=== PATIENT | male | born 2000 | race Caucasian/White ===

== ENCOUNTER 2021-03-10 23:34 | Emergency (ER) | payer OTHER, SELFPAY ==
[2021-03-10 23:48] VITALS: BP 137/68; PULSE 84; RESP 18; TEMP 36.6; O2SAT 97
--- NOTE | 2021-03-10 23:50 | ED.CHESTPAIN ---
HPI - Chest Pain General Chief Complaint: Shortness of Breath/Dyspnea Stated Complaint: chest pain Time Seen by Provider: 03/10/21 23:44 Source: patient History of Present Illness HPI narrative: Patient presents requesting a Covid swab. Patient reports this evening he was getting ready for bed developed some nausea shortness of breath and chest pain he had an episode of emesis significant other felt he was wheezing but he took a home Covid test and thought maybe it was positive but they were not sure so they came to the ER requesting a Covid test. Patient reports he is feeling improved now. Reports is not vaccinated as Covid and a coworker was sick recently. Related Data Allergies Allergy/AdvReac Type Severity Reaction Status Date / Time No Known Allergies Allergy Verified 03/10/21 23:52 Review of Systems Review of Systems: CONSTITUTIONAL: Denies fever, chills, or sweats. EYES: Denies visual changes, redness, or discharge. ENT: Denies rhinorrhea, congestion, sore throat, or otalgia. CARDIOVASCULAR: Denies current chest pain, palpitations, or edema. RESPIRATORY: Reports mild recent cough and continued mild shortness of breath GASTROINTESTINAL: Denies abdominal pain, or diarrhea. GENITOURINARY: Denies dysuria or hematuria. SKIN: Denies rash or itching. MUSCULOSKELETAL: Denies back pain, joint pain, or myalgia. NEUROLOGIC: Denies headache, numbness, dizziness, or weakness. PSYCHIATRIC: Denies anxiety or depression. All systems reviewed & are unremarkable except as noted in HPI and below PMFSH Past Medical History Medical History (Updated 03/11/21 @ 00:01 by Ricki Dela Cruz) Patient denies significant medical history Social History Social History (Updated 03/10/21 @ 23:52 by Seth Dozier MD) Occupation/Education: occupation Exam Narrative: GENERAL: Well-appearing, well-nourished, and in no acute distress. HEAD: Normocephalic, atraumatic. EYES: PERRLA and EOMI. ENT: Nares clear, no rhinorrhea or epistaxis. Mucous membranes moist. NECK: Supple. No masses. No JVD CHEST: Clear to auscultation. No respiratory distress. No wheezes rales or rhonchi HEART: Regular rate and rhythm. No murmur heard. Normal peripheral pulses. ABDOMEN: Soft, nontender, nondistended, normal active bowel sounds. EXTREMITIES: Normal range of motion. No edema. SKIN: Warm, dry, no rash. NEURO: No focal deficits. Alert and oriented x3. PSYCH: Normal mood and affect. Course Vital Signs Vital signs: Vital Signs Temperature 36.6 C 03/10/21 23:48 Pulse Rate 84 03/10/21 23:48 Respiratory Rate 18 03/10/21 23:48 Blood Pressure 137/68 03/10/21 23:48 Pulse Oximetry 97 03/10/21 23:48 Temperature 36.6 C 03/10/21 23:48 Pulse Rate 76 03/11/21 00:20 Respiratory Rate 18 03/11/21 00:20 Blood Pressure 124/73 03/11/21 00:20 Pulse Oximetry 99 03/11/21 00:20 MDM - Chest Pain MDM Narrative Medical decision making narrative: H&P as above, vss, pt looks clinically well, exam with clear lungs and nonacute abdomen, labs with pending Covid test additional work-up was offered however patient declined, additional labs/img considered, symptomatic relief available as needed, patient declined supportive therapies on reevaluation pt continues to looks clinically well. Symptoms may represent early viral process possible Covid, dns severe sepsis, bacterial pneumonia, severe dehydration. plan to tx/monitor as op w/ pcm f/u findings/plan discussed with pt, pt agree/comfortable with plan, return precautions given Lab Data Labs: Lab Results 03/11/21 Range/Units 00:08 SARS-CoV-2 RNA (RT-PCR) Pending Discharge Plan Discharge Clinical Impression: Breath shortness Nausea & vomiting Qualifiers: Vomiting type: unspecified Qualified Code(s): R11.2 - Nausea with vomiting, unspecified Patient Disposition: Home, Self-Care Condition: Improved Instructions: Antibiotic Form, Acute Nausea and Vomiting (ED), C
[2021-03-11 00:20] VITALS: BP 124/73; PULSE 76; RESP 18; O2SAT 99
[2021-03-12 14:58] LABS: SARS-CoV-2 RNA PCR Negative (Negative)
== END 2021-03-11 00:20 | disposition home or self-care (01) ==
PROVIDERS: Emergency Provider Emergency Medicine; PCP Emergency Medicine
DX: R06.02 Shortness of breath (principal); R11.2 Nausea with vomiting, unspecified; Z20.822 Contact with and (suspected) exposure to COVID-19
CPT/HCPCS: 99283; C9803; U0003; U0005

== ENCOUNTER 2021-04-04 16:42 | Emergency (ER) | payer BC, SELFPAY ==
--- NOTE | ~2021-04-04 | XR_ITS ---
EXAMINATION:[id number] DATE: 04/04/2021 20:14 INDICATION: Right-sided neck pain TECHNIQUE: AP, lateral, and odontoid views of the cervical spine are provided. COMPARISON: None FINDINGS: Alignment is normal. The odontoid is intact. No fracture is identified. Vertebral body heig hts and disk spaces are normal. Prevertebral soft tissues are normal. IMPRESSION: 1. No acute osseous abnormality. Reviewed, dictated and finalized at location [facility]. [employer]
[2021-04-04 17:03] VITALS: BP 150/78; PULSE 59; RESP 20; TEMP 36.9; O2SAT 100
--- NOTE | 2021-04-04 20:04 | ED.GENADULT ---
HPI - General Adult General Chief complaint: Neck Pain/Injury Stated complaint: neck pain Time Seen by Provider: 04/04/21 19:04 Source: patient Mode of arrival: ambulatory Limitations: no limitations History of Present Illness HPI narrative: Patient presents for evaluation of right lateral leg pain. Symptom onset this morning after waking for the day. He initially thought that he slept on his neck wrong . States the pain is constant, described as tight , rated 8 out of 10 in severity. Majority of his pain is in his right trapezius. He does exercise 5 times per week but does not remember any precipitating injury. Pain does not radiate into upper extremities. No paresthesias. Girlfriend attempted to massage the area. Movement makes his pain worse. No reports he had headache circumferentially that he describes as a tightness . He rates his headache 8 out of 10 in severity. He has a history of migraines but this is dissimilar. No fever, chills, nausea, vomiting. Denies neck stiffness. Related Data Allergies Allergy/AdvReac Type Severity Reaction Status Date / Time No Known Allergies Allergy Verified 03/10/21 23:52 Review of Systems Review of Systems: CONSTITUTIONAL: Denies fever, chills, or sweats. EYES: Denies visual changes, redness, or discharge. ENT: Denies rhinorrhea, congestion, sore throat, or otalgia. CARDIOVASCULAR: Denies chest pain, palpitations, or edema. RESPIRATORY: Denies cough or dyspnea. GASTROINTESTINAL: Denies abdominal pain, nausea, vomiting, or diarrhea. GENITOURINARY: Denies dysuria or hematuria. SKIN: Denies rash or itching. MUSCULOSKELETAL: Reports neck pain. Denies back pain, joint pain, or myalgia. NEUROLOGIC: Reports headache. Denies numbness, dizziness, or weakness. PSYCHIATRIC: Denies anxiety or depression. [facility] Past Medical History Medical History (Updated 04/04/21 @ 21:15 by Emanuel Fischer, [facility], ) Patient denies significant medical history Surgical History Surgical History No pertinent past surgical history Family History Family History (Updated 04/04/21 @ 20:08 by Emanuel Fischer, [facility], ) Mother Psoriasis Social History Social History (Updated 04/04/21 @ 20:09 by Emanuel Fischer, [facility], ) Smoking status: Current every day smoker Tobacco type: e-cigarettes/vaping Alcohol intake: current Alcohol use details: social Substance use: never Gender identity (if verbalized by the patient): Male Sexual Orientation (if Verbalized by the Patient): Straight or Heterosexual Spiritual care concerns: No Exam Narrative: GENERAL: Well-appearing, well-nourished, and in no acute distress. HEAD: Normocephalic, atraumatic. EYES: PERRLA and EOMI. ENT: Nares clear, no rhinorrhea or epistaxis. Mucous membranes moist. Oropharynx without tonsillar hypertrophy exudate or other lesions. Bilateral TMs pearly bae nonbulging NECK: Supple. No adenopathy or masses. No carotid bruits or JVD. No tenderness in midline or paraspinous muscles bilaterally of cervical spine. Tenderness noted over right trapezius. Decreased ROM of neck CHEST: Clear to auscultation. No respiratory distress. No wheezes rales or rhonchi HEART: Regular rate and rhythm. No murmur heard. Normal peripheral pulses. ABDOMEN: Soft, nontender, nondistended, normal active bowel sounds. EXTREMITIES: Normal range of motion. No edema. SKIN: Warm, dry, no rash. NEURO: No focal deficits. Alert and oriented x3. Negative Brudzinski sign. Negative Kernig sign PSYCH: Normal mood and affect. Course Course Emergency Course: This is a 20-year-old male who presented with complaints of right lateral neck pain. X-ray was negative for acute process. He was given Toradol and Flexeril with significant reduction in his pain thereafter. Likely muscular in origin. He was advised that warm moist heat may help. Will dc with ibuprofen and flexeril. He should follow up outpa
[2021-04-04] MEDS: CYCLOBENZAPRINE HCL 10 MG TABLET PO (20:32)
[2021-04-04] MEDS: KETOROLAC (*BKC) 60 MG/2 ML VIAL IM (20:32)
== END 2021-04-04 21:34 | disposition home or self-care (01) ==
PROVIDERS: Emergency Provider Nurse Practitioner; PCP Emergency Medicine
DX: M79.10 Myalgia, unspecified site (principal); F17.290 Nicotine dependence, other tobacco product, uncomplicated
CPT/HCPCS: 72040; 96372; 99283; A9270; J1885

== ENCOUNTER 2021-11-08 11:43 | Outpatient (CLI) | payer BC, SELFPAY ==
[2021-11-08 12:07] LABS: Alanine Aminotransferase 50 U/L (6-50); Albumin Level 5.1 g/dL (3.5-5.1); Alkaline Phosphatase 57 U/L (38-126); Anion Gap 8 mmol/L (8-16); Aspartate Amino Transferase 40 U/L (17-59); Blood Urea Nitrogen 14 mg/dL (9-20); Calcium 9.7 mg/dL (8.4-10.2); Carbon Dioxide 29 mmol/L (22-30); Chloride 104 mmol/L (98-107); Estimated Glomerular Filt Rate > 60; Glucose 81 mg/dL (65-110); Magnesium 1.9 mg/dL (1.6-2.3); Potassium 4.1 mmol/L (3.4-5.0); Sodium 141 mmol/L (137-145)
[2021-11-08 12:22] LABS: Basophils Absolute Auto 0.1 K/mm3 (0.0-0.1); Basophils Percent Auto 1.1 % (0.2-1.2); Eosinophils Absolute Auto 0.3 K/mm3 (0-0.3); Eosinophils Percent Auto 5.7 % (0-4.4); Hematocrit 44.4 % (42.0-52.0); Hemoglobin 16.1 g/dL (14.0-18.0); Immature Granulocyte Absolute 0.01 K/mm3 (0.00-0.031); Immature Granulocyte Percent A 0.2 % (0-0.5); Lymphocytes Absolute Auto 2.03 K/mm3 (0.9-3.2); Lymphocytes Percent Auto 37.5 % (18.3-44.2); Mean Corpuscular HGB Conc 36.3 g/dl (32-36); Mean Corpuscular Hemoglobin 30.5 pg (26-34); Mean Corpuscular Volume 84.1 fl (80-100); Mean Platelet Volume 9.8 fl (7.4-10.4); Monocytes Absolute Auto 0.4 K/mm3 (0.1-0.6); Monocytes Percent Auto 8.1 % (2.6-8.5); Neutrophils Absolute Auto 2.6 K/mm3 (1.3-6.7); Neutrophils Percent Auto 47.4 % (45.5-73.1); Platelet Count Result 235 k/mm3 (150-375); Red Blood Count 5.28 M/mm3 (4.6-6.20); White Blood Count 5.4 K/mm3 (4.5-10.0)
== END 2021-11-08 11:44 | disposition home or self-care (01) ==
LOC: ANHLAB 11:46
PROVIDERS: PCP Emergency Medicine; Visit Provider Internal Medicine Cardiovascular Disease
DX: R00.2 Palpitations (principal)
CPT/HCPCS: 36415; 80053; 83735; 84443; 85025